=== PATIENT | female | born 1990 | race Caucasian/White ===

== ENCOUNTER → 2025-04-20 08:14 | Outpatient (REF) | payer OTHER, SELFPAY | LOC: HWRCS 08:14 | PROVIDERS: ATTENDING PHYSICIAN Internal Medicine; FAMILY PHYSICIAN Family Medicine | DX: R00.2 Palpitations (principal); R00.1 Bradycardia, unspecified; R42 Dizziness and giddiness; R07.89 Other chest pain | CPT/HCPCS: 93306 ==

== ENCOUNTER 2025-04-22 17:32 | Emergency (ER) | payer OTHER, SELFPAY ==
[2025-04-22 17:34] VITALS: BP 134/78
--- NOTE | 2025-04-22 19:33 | ED.GENMED ---
History of Present Illness
General
Chief Complaint: Head Injury
Time Seen by Provider: 04/22/25 19:33
History of Present Illness
History of Present Illness:
FOCUSED PAST MEDICAL HISTORY
- History of migraines, anxiety
REVIEW OF OLD RECORDS
- I reviewed records, in 2021 the patient was diagnosed with influenza; the patient also had a CAT scan of the brain which was in 2021 was unremarkable
Note:
CHIEF COMPLAINT(S)
Head injury after tripping on uneven sidewalk.
HISTORY OF PRESENT ILLNESS
The patient is a 34-year-old female who reports falling and sustaining a head injury today at approximately 11:00 AM. She was buying [employer] presents for her mother and sister when she tripped over an uneven sidewalk, resulting in her head
striking the sidewalk with no head covering at the time. She describes feeling disoriented after the incident and was noted for driving unsteadily, as observed by her mother who followed her home. The patient admits to falling asleep intermittently
throughout the day following the incident. She describes ongoing nausea but denies persistent vomiting. She reports feeling like things were spinning immediately following the fall. On questioning, she denies feeling as if she is in a fog or having
a severe headache. The patient has a history of bipolar disorder, anxiety disorder, depression, attention deficit hyperactivity disorder (ADHD), obsessive-compulsive disorder (OCD), and hypertension.
PAST MEDICAL AND SURGICAL HISTORY
The patient has been diagnosed with bipolar disorder, high functioning anxiety, depression, ADHD, OCD, and hypertension. There is no report of past surgical history provided in the discussion.
SOCIAL DETERMINANTS AFFECTING HEALTH
The patient reports undergoing stress due to the responsibilities associated with her medical conditions. No additional social determinants such as housing instability, substance use, or financial issues were discussed.
MEDICATIONS
The patient is currently on tranylcypromine, lamotrigine, oxcarbazepine, venlafaxine, atenolol, and montelukast.
REVIEW OF SYSTEMS
- Head: Impact from fall, no open wound.
- Gastrointestinal: Nausea reported, no vomiting currently.
- Musculoskeletal: Aches and soreness reported, especially in the right hand due to possible impact during the fall.
- Neurological: Intermittent drowsiness, potential concussion symptoms.
PHYSICAL EXAM
- General: Appears somewhat uncomfortable, alert, and oriented, no acute distress.
- Skin: Warm, dry. Abrasion noted over the palmar aspect of the right hand.
- Head: Tenderness over the right temporal area, no visible cuts or significant swelling.
- Neck: Vague posterior neck tenderness, no midline cervical spine tenderness.
- Cardiovascular: Normal peripheral perfusion, no edema.
- Respiratory: Respirations are non-labored.
- Gastrointestinal: Soft abdomen, non-tender.
- Musculoskeletal: Abrasion noted on the palmar aspect of the right hand.
- Neurological: Alert, oriented, no gross neurological deficits noted.
- Psychiatric: Cooperative, mood seems stable relative to known psychiatric history.
PROBLEM LIST
Acute Problems:
- Head injury with possible concussion
- Abrasion on the right hand
- Nausea
Chronic Problems:
- Bipolar disorder
- High functioning anxiety
- Depression
- ADHD
- OCD
- Hypertension
PLAN
- Monitor for any worsening symptoms that could indicate intracranial bleeding.
- Await official radiologist review of CT scan.
- Advise patient on rest and precautions following potential concussion.
- Avoid additional medications for nausea due to interaction concerns with current medications unless nausea becomes unbearable.
- Follow-up with primary care physician and psychiatrist for ongoing management of chronic conditions.
DIFFERENTIAL DIAGNOSIS
The Differential Diagnosis includes, in no particular order and is not limited to:
- Concussion
- Intracranial hemorrhage
- Post-traumatic headache
- Cervical spine injury
- Closed head injury
- Vestibular dysfunction
- Gastritis or medication side effects causing nausea
- Anxiety or stress response exacerbating symptoms
- Simple abrasion to the hand
- Possible unnoticed fracture or dislocation of the hand.
Disposition:
SUMMARY OF ENCOUNTER
The patient, a 34-year-old female, was seen in the emergency department after sustaining a head injury from a fall. Her symptoms were consistent with a concussion, based on symptomatology including disorientation and nausea. A CT scan was conducted
and showed no signs of intracranial bleeding, confirming the absence of life-threatening injuries. Management focused on advising rest and concussion precautions.
PLAN
The patient was advised to rest and avoid strenuous activities such as sports and exercise for a week to allow for brain healing. Walking is permissible, but caution is advised to avoid further head injuries. The patient was encouraged to limit
activities that could exacerbate the concussion symptoms and to rest as needed.
INDEPENDENT REVIEW OF LABS AND INTERPRETATION OF TESTS
My independent interpretation of the CT scan shows no evidence of intracranial bleeding, supporting the diagnosis of concussion.
PATIENT EDUCATION AND COUNSELING
The patient was educated on the nature of concussions, emphasizing the importance of rest and limiting activities that can stress the brain for a week. She was advised on the safety of falling asleep and the need for caution to prevent another head
injury.
FOLLOW-UP INSTRUCTIONS
Please schedule a follow-up visit with your primary care physician or a neurologist for further evaluation and management of the concussion symptoms.
MEDICATION RECONCILIATION
Medications are reconciled as per current medication list: tranylcypromine, lamotrigine, oxcarbazepine, venlafaxine, atenolol, and montelukast.
MEDICAL DECISION MAKING
-Complexity of Data Reviewed: Chronic conditions affecting care include bipolar disorder, high functioning anxiety, depression, ADHD, OCD, and hypertension. Differential Diagnosis includes concussion, intracranial hemorrhage, post-traumatic
headache, cervical spine injury, closed head injury, vestibular dysfunction, gastritis or medication side effects, anxiety or stress response exacerbations, simple abrasion to the hand, possible unnoticed fracture or dislocation of the hand.
-Data:
Category 1: My independent interpretation of the CT scan confirmed no bleeding, supporting a diagnosis of concussion.
-Risk: Consideration of Admission/Observation: Escalation of care including admission/observation was considered given the complexity and risk of the patients presenting complaint, exam findings, and/or their underlying comorbidities. However,
ultimately I feel the patient is safe for outpatient management with close follow-up. Reasoning: Work-up reassuring, does not reveal any acute life/organ threatening processes, patients symptoms well controlled upon reevaluation, reexamination is
reassuring, vitals are stable, patient agreeable with discharge, reliable for follow-up.
Care significantly affected by Social Determinants of Health: The patient experiences stress related to her medical conditions.
DIAGNOSIS
- Concussion (ICD-10: S06.0X0A)
- Abrasion of right hand (ICD-10: S60.511A)
- Hypertension (ICD-10: I10)
- Bipolar disorder (ICD-10: F31.9)
- Generalized anxiety disorder (ICD-10: F41.1)
- Major depressive disorder (ICD-10: F33.9)
- Attention-deficit hyperactivity disorder, unspecified type (ICD-10: F90.9)
- Obsessive-compulsive disorder (ICD-10: F42)
RADIOLOGY
- CAT scan of the brain personally reviewed and agree with radiologist interpretation that there is no intracranial hemorrhage
UPDATE
- Appears very comfortable and in unchanged neurologic exam with GCS of 15 on reassessment at 8:10 PM
Past History
Past History
ED Past Medical History: Psychiatric (anxiety, depression) and Other (Murmur,)
ED Past Surgical History: None
Social History
Tobacco: Other (E-cig)
Alcohol: Occasional
Personal: Single
Living: with family
Family History
Family History: Other (non-contributory)
Phy Exam
Physical Exam
Physical Exam:
See HPI
Course
Orders/Labs/Results
Orders:
Orders
04/22/25 17:41
EKG [Electrocardiogram (*1)] Urgent
Reason for Study: Tachycardia
EKG- Treatment ONCE
04/22/25 19:[address] [CT Head W/o Iv Contrast] Urgent
Comment:
Reason For Exam: fall w/ headstrike, dizziness
Vital Signs
Initial and Last Documented VS:
Initial Vital Signs
Temp Pulse Resp BP Pulse Ox
36.9 C 82 18 134/78 99
04/22/25 17:34 04/22/25 17:34 04/22/25 17:34 04/22/25 17:34 04/22/25 17:34
Last Documented Vital Signs
Temp Pulse Resp BP Pulse Ox
36.9 C 82 18 134/78 99
04/22/25 17:34 04/22/25 17:34 04/22/25 17:34 04/22/25 17:34 04/22/25 19:34
*Pulse Oximetry
SaO2: 99
Oxygen Mode of Delivery: Room air
Patient hypoxic: no
*Critical Care Note
Total Time (30-74mins, 75-104mins- exclusive of procedures): Not Applicable
ED Attending Note
-
Portions of this chart may have been created with voice recognition software.� Occasional wrong word or��sound alike� substitutions may have occurred due to the inherent limitations of voice recognition software.
Discharge Plan
Departure
Patient Disposition: Home (Routine Discharge)
Date of Disposition: 04/22/25
Time of Disposition: 20:10
Patient with high blood pressure during this ER visit?: Yes
Discharge Problem:
Concussion
Instructions: Concussion, Adult (DC), BLOOD PRESSURE
Prescriptions:
No Action
ondansetron 4 mg tablet,disintegrating
4 mg PO QID PRN (Reason: nausea and vomiting) Qty: 20 0RF
ibuprofen 800 mg tablet
800 mg PO QID PRN (Reason: pain, take with food) Qty: 20 0RF
ondansetron 4 mg tablet,disintegrating
4 mg PO Q8HPRN PRN (Reason: nausea and vomiting) Qty: 10 0RF
Referrals:
Ramos Henry MD [Family Provider, Family Practice]
Activity Restrictions/Additional Instructions:
The CAT scan of your brain shows no bleeding. Return if worse or other concerns. I recommend no vigorous jewels activities or exercising until all of your symptoms have resolved for a week. Follow-up your primary care doctor as well.
Interventions
Interventions:
*Risk Screen - Suicide Last Done: 04/22/25 17:34
*General Assessment Last Done: 04/22/25 17:34
*Neglect/Abuse Screening Last Done: 04/22/25 17:34
*ED COVID-19 Vaccine History Last Done: 04/22/25 17:34
*ED Influenza Vaccine History Last Done: 04/22/25 17:34
Discharge Date and Time
Print Language: HEBREW
== END 2025-04-22 21:08 | disposition home or self-care (01) ==
LOC: EMR 17:32
PROVIDERS: EMERGENCY PHYSICIAN Emergency Medicine; FAMILY PHYSICIAN Family Medicine
DX: S06.0XAA Concussion with loss of consciousness status unknown, initial encounter (principal); W18.09XA Striking against other object with subsequent fall, initial encounter; Y93.01 Activity, walking, marching and hiking; Y92.480 Sidewalk as the place of occurrence of the external cause; I10 Essential (primary) hypertension; F31.9 Bipolar disorder, unspecified; F41.9 Anxiety disorder, unspecified; F90.9 Attention-deficit hyperactivity disorder, unspecified type; F42.9 Obsessive-compulsive disorder, unspecified
CPT/HCPCS: 99284; 70450; 93005